=== PATIENT | male | born 1940 | race Caucasian/White ===

== ENCOUNTER 2016-06-27 07:27 | Outpatient (CLI) | payer MEDICARE, BC ==
[2016-06-27 09:05] LABS: ALT (SGPT) 18 U/L (0-55); AST (SGOT) 22 U/L (5-34); Albumin 3.6 g/dL (3.4-4.8); Alkaline Phosphatase 102 U/L (40-150); Anion Gap 14 mmol/L (10-20); BUN (Urea Nitrogen) 9 mg/dL (8.4-25.7); Bilirubin, Direct 0.3 mg/dL (0.1-0.3); Bilirubin, Total 0.7 mg/dL (0.2-1.2); Calc. Creatinine Clearance 0 mL/min (70-130); Calcium 8.6 mg/dL (7.8-10.44); Carbon Dioxide 29 mmol/L (23-31); Cardiac Risk 2.4 (Less than 4.5); Chloride 103 mmol/L (98-107); Cholesterol 117 mg/dL (< 200 Desired); Estimated GFR-MDRD Greater than 90; Glucose 110 mg/dL (83-110); HDL Cholesterol 49 mg/dL (>60 Neg Risk); LDL Cholesterol, Calculated 59 mg/dL; Potassium 4.1 mmol/L (3.5-5.1); Protein, Total 5.9 g/dL (5.8-8.1); Sodium 142 mmol/L (136-145); Triglycerides 47 mg/dL (Less than 150)
== END 2016-06-27 07:28 | disposition home or self-care (01) ==
LOC: MADLAB 07:27
PROVIDERS: ATTEND Internal Medicine Cardiovascular Disease
DX: I10 Essential (primary) hypertension (principal); E78.00 Pure hypercholesterolemia, unspecified; Z95.1 Presence of aortocoronary bypass graft
CPT/HCPCS: 36415; 80048; 80061; 80076

== ENCOUNTER 2021-05-12 09:43 | Emergency (ER) | payer MEDICARE, BC ==
[2021-05-12] MEDS ORDERED: Sodium Bicarb 50 MEQ/50 ML Abboject 8.4% SYRINGE IVP ONE (09:44)
[2021-05-12] MEDS ORDERED: EPINEPHrine 1 MG/ML VIAL IJ ONE (09:44)
[2021-05-12] MEDS ORDERED: methylPREDNISolone Sod Succ/PF 125 MG/2 ML VIAL ONE (10:05)
[2021-05-12 10:09] LABS: Hemoglobin 11.7 g/dL (14.0-18.0); Mean Corpuscular HGB CONC 30.4 g/dL (32.0-36.0); Mean Corpuscular Hemoglobin 30.8 pg (27.0-31.0); Mean Corpuscular Volume 101.2 fL (78.0-98.0); Mean Platelet Volume 6.3 fL (7.4-10.4); Platelet Count 209 thou/uL (130-400); RBC Distribution Width 13.3 % (11.5-14.5); Red Blood Cell (RBC) Count 3.79 mill/uL (4.70-6.10); White Blood Cell (WBC) Count 12.2 thou/uL (4.8-10.8)
[2021-05-12 10:14] LABS: Lactic Acid 2.4 mmol/L (0.5-2.2)
[2021-05-12 10:21] LABS: MDiff Complete? YES; Manual Diff?? YES
[2021-05-12 10:22] LABS: ALT (SGPT) 12 U/L (8-55); AST (SGOT) 20 U/L (5-34); Albumin 2.5 g/dL (3.4-4.8); Alkaline Phosphatase 74 U/L (40-110); Anion Gap 14 mmol/L (10-20); Anisocytosis SLIGHT = 6-15 cells (100X) (0-5/hpf); BUN (Urea Nitrogen) 11 mg/dL (8.4-25.7); Band 11 % (5-11); Bilirubin, Total 0.2 mg/dL (0.2-1.2); CK (CPK) 260 U/L (30-200); Calc. Creatinine Clearance 0 mL/min (70-130); Calcium 7.7 mg/dL (7.8-10.44); Carbon Dioxide 25 mmol/L (23-31); Chloride 107 mmol/L (98-107); Globulin 2.8 g/dL (2.4-3.5); Glucose 235 mg/dL (83-110); Lymphocytes 9 % (21-51); Magnesium 1.8 mg/dL (1.6-2.6); Monocytes 5 % (0-10); Neutrophil 75 % (42-75); Platelet Morphology Comment Appears Adequate; Potassium 3.4 mmol/L (3.5-5.1); Protein, Total 5.3 g/dL (5.8-8.1); Sodium 143 mmol/L (136-145)
[2021-05-12 10:28] LABS: Base Excess-Venous -1.2 mmol/L (-2.0 to 3.0); CO2 Tension (PvCO2) 124.2 mmHg (42.0-51.0); Calcium, Ionized 1.18 mmol/L (1.15-1.33); Chloride 104 mmol/L (98-107); Potassium 3.6 mmol/L (3.5-5.1); Sodium 148 mmol/L (138-145); T. Carbon Dioxide 36.8 mmol/L (22.0-28.0); vO2 Saturation-calc 99.1 % (60.0-85.0)
[2021-05-12 10:41] LABS: CKMB 6.1 ng/mL (0-6.6)
== END 2021-05-12 10:34 | disposition short-term general hospital (02) ==
LOC: MADERS 09:43
DX: J96.00 Acute respiratory failure, unspecified whether with hypoxia or hypercapnia (principal); J44.1 Chronic obstructive pulmonary disease with (acute) exacerbation; R41.82 Altered mental status, unspecified; T68.XXXA Hypothermia, initial encounter; R79.89 Other specified abnormal findings of blood chemistry; E87.2 Acidosis; Z87.19 Personal history of other diseases of the digestive system; Z86.018 Personal history of other benign neoplasm; I48.91 Unspecified atrial fibrillation
CPT/HCPCS: 71045; 80053; 82330; 82435; 82550; 82553; 82803; 83605; 83735; 84132; 84295; 84484; 85014; 85025; J0171; 51702; 96374; 96375; J2930; J7050; J7620